=== PATIENT | female | born 1985 | race African-American/Black ===

== ENCOUNTER 2022-05-08 12:03 | Emergency (ER) | payer MEDICAID ==
[~2022-05-08] VITALS: Ht 170.2 cm; Wt 90.0 kg
[2022-05-08] MEDS ORDERED: SODIUM CHLORIDE 0.9% 1,000 ML IV ONE ×2 (12:30→15:15)
[2022-05-08 13:02] LABS: HCG SCREEN NEGATIVE
[2022-05-08 13:16] LABS: PROTHROMBIN TIME 11.1 sec (9.6-11.0)
[2022-05-08 13:37] LABS: CHLORIDE 99 mEq/L (98-107)
[2022-05-08 13:49] LABS: ETHANOL BLOOD < 10 mg/dL
[2022-05-08] MEDS ORDERED: LORAZEPAM 0.5MG TABLET PO ONE (14:00)
[2022-05-08] MEDS ORDERED: POTASSIUM CHLORIDE 20MEQ TABLET SR PO ONE (14:00)
[2022-05-08 15:33] LABS: BASOPHILS % 0.4 % (0.0-2.0); EOSINOPHILS % 1.4 % (0.0-5.0); HEMATOCRIT. 34.3 % (36.0-48.0); HEMOGLOBIN. 11.7 g/dL (12.0-16.0); MEAN CORPUSCULAR HEMOGLOBIN 32.1 pg (28.0-32.0); MEAN CORPUSCULAR VOLUME 93.9 fL (81.0-99.0); NEUTROPHILS % 83.2 % (40.0-76.0); PLATELET 282 x1000/uL (130-400); RED BLOOD CELL COUNT 3.65 mill/uL (4.2-5.4); RED CELL DISTRIBUTION WIDTH 13.2 % (11.6-14.6)
[2022-05-08 15:40] LABS: CLARITY URINE CLEAR (CLEAR); COLOR URINE YELLOW (YELLOW); KETONES URINE NEGATIVE (NEGATIVE); LEUKOCYTE ESTERASE URINE NEGATIVE (NEGATIVE); NITRITE URINE NEGATIVE (NEGATIVE); OCCULT BLOOD URINE NEGATIVE (NEGATIVE); PROTEIN URINE NEGATIVE (NEGATIVE); SPECIFIC GRAVITY URINE 1.009 (1.005-1.030); UROBILINOGEN URINE 0.2 E.U./dL (0.2-1.0)
[2022-05-08 16:02] LABS: *BARBITURATES SCREEN URINE NEGATIVE (NEGATIVE); *BENZODIAZEPINES SCREEN URINE NEGATIVE (NEGATIVE); CANNABINOID URINE SCREEN NEGATIVE (NEGATIVE); METHADONE URINE SCREEN NEGATIVE (NEGATIVE); OPIATES URINE SCREEN NEGATIVE (NEGATIVE); PHENCYCLIDINE URINE SCREEN NEGATIVE (NEGATIVE)
[2022-05-08 16:07] LABS: *AMPHETAMINES SCREEN URINE PRESUMTIVE POSITIVE (NEGATIVE); *COCAINE SCREEN URINE PRESUMTIVE POSITIVE (NEGATIVE)
[2022-05-08] MEDS ORDERED: TOPUD PO (16:20)
[2022-05-08] MEDS ORDERED: IBUP-2028 MT (16:20)
[2022-05-08 19:00] VITALS: BP 108/55
== END 2022-05-08 19:22 | disposition home or self-care (01) ==
LOC: ER 12:03
DX: U07.1 COVID-19 (principal); F19.10 Other psychoactive substance abuse, uncomplicated; R41.82 Altered mental status, unspecified; F41.9 Anxiety disorder, unspecified; E78.00 Pure hypercholesterolemia, unspecified; F20.9 Schizophrenia, unspecified; Z88.8 Allergy status to other drugs, medicaments and biological substances
CPT/HCPCS: 36415; 70450; 71045; 80053; 80305; 80307; 80320; 80329; 81003; 82962; 83605; 83690; 83735; 83880; 84439; 84443; 84484; 84703; 85025; 85610; 86850; 86900; 86901; 87426; 93005; 96360; 96361; 99285; C9803; J7030; G0480